=== PATIENT | male | born 1965 | race Caucasian/White ===

== ENCOUNTER 2016-12-08 13:07 | Emergency (ER) | payer MEDICAID, OTHER ==
[~2016-12-08] VITALS: Ht 180.3 cm; Wt 79.0 kg
[~2016-12-08 13:07] MED LIST: CYCL-36 PO; DIAZ10 PO; LEVA500T33 PO; LORT7.5T3 PO; MELOPOW XX; METR250 PO; OXYC-360 PO
[2016-12-08 13:14] VITALS: BP 116/77; PULSE 59; RESP 18; TEMP 97.7; O2SAT 98
[2016-12-08] MEDS ORDERED: HYDR-3535 PO (13:22)
[2016-12-08] MEDS ORDERED: DIAZ2TAB PO (13:22)
[2016-12-08] MEDS ORDERED: diphenhydrAMINE HCL 25 MG CAP PO ONE (14:00)
[2016-12-08] MEDS ORDERED: FAMOTIDINE 20 MG TAB PO ONE (14:00)
[2016-12-08] MEDS ORDERED: predniSONE 20 MG TAB PO ONE (14:00)
--- NOTE | 2016-12-08 14:05 | PD ---
HPI Chief Complaint: Skin Problem Time Seen by Provider: 14:01 Travel History International Travel<30 days: No Contact w/Intl Traveler<30days: No Traveled to known affect area: No History of Present Illness HPI Patient comes in complaining of a pruritic rash on his bilateral upper extremities and back that he awoke with around 3:30 this morning. Patient denies any known new allergen exposures including to but not limited to: Soaps, lotions, detergents, pets, medications, furniture, or known environmental allergies. Patient reports yesterday he was working on a car which is not uncommon for him and did not use anything different. Denies being on any one else with similar or weight loss. Denies any fevers or respiratory involvement. PFSH Past Medical History Arthritis: Yes ("arthritis in the back") Anxiety: Yes Diminished Hearing: No Gout: Yes Kidney Stones: Yes Past Surgical History Genitourinary Surgery: Yes (DIALATION OF URETERS) Other Surgery: Yes (? lithotripsy "break up adhesions from kidney stones") Social History Alcohol Use: Yes (DAILY) Tobacco Use: No (DENIES) Substance Use: No Allergies-Medications (Allergen,Severity, Reaction): Coded Allergies: No Known Allergies (Verified , 12/08/16) Reported Meds & Prescriptions Reported Meds & Active Scripts Active Pepcid (Famotidine) 20 Mg Tab 20 Mg PO BID 10 Days Prednisone (21) 10 mg tab Dose Pack (Prednisone) 10 Mg Pack 10 Mg PO DIRECTED Reported Lortab (Hydrocodone-Acetaminophen) 10-325 Mg Tab 1 Tab PO Q4H PRN Diazepam 2 Mg Tab Unknown Dose PO TID PRN Review of Systems Except as stated in HPI: all other systems reviewed are Neg Physical Exam Narrative GENERAL: Well-developed, well nourished, in no acute distress, and non-ill appearing. SKIN: Warm and dry. Blanching smooth rash noted bilateral upper extremities. It is afebrile, not indurated, without crepitus fluctuation. There is no drainage or excoriation noted. HEAD: Atraumatic. Normocephalic. EYES: Pupils equal and round. EOMI. No scleral icterus. No injection or drainage. ENT: No nasal bleeding or discharge. Mucous membranes pink and moist. NECK: Trachea midline. Supple. No nuclear rigidity. RESPIRATORY: No accessory muscle use. No respiratory distress. Speaking in full sentences without difficulty. MUSCULOSKELETAL: No obvious deformities. No clubbing. No cyanosis. No edema. Full range of motion. NEUROLOGICAL: Awake and alert. No obvious cranial nerve deficits. Motor grossly within normal limits. Normal speech. PSYCHIATRIC: Appropriate mood and affect; insight and judgment normal. Data Data Last Documented VS Vital Signs Date Time Temp Pulse Resp B/P Pulse Ox O2 Delivery O2 Flow Rate FiO2 12/08/16 13:14 97.7 59 18 116/77 98 Orders Prednisone (Deltasone) (12/08/16 14:00) Famotidine (Pepcid) (12/08/16 14:00) Diphenhydramine (Benadryl) (12/08/16 14:00) MDM Medical Decision Making Medical Screen Exam Complete: Yes Emergency Medical Condition: Yes Differential Diagnosis Allergic reaction, viral rash, nonspecific rash, folliculitis, other Narrative Course The patient presented with nonspecific rash/dermatitis. There were no blisters or bullae, target lesions, purpura or petechia, nor vesiculobullous or scarlatiniform lesions. The patient looks great and was non-ill appearing. There was no evidence to suggest scabies, cellulitis, folliculitis or abscess, Staph. Scalded Skin Syndrome, Toxic Shock, Toxic Epidermal necrolysis, Kawasaki s, Measles, Rubella, cutaneous T cell lymphoma, Erythema Multiforme (minor or major). Plan of care was discussed with the patient and the patient is to follow up with their physician. The patient agreed with plan. Patient in no obvious distress upon re-evaluation. Patient was asked if they wanted to speak to my attending, which the patient did not wish to do at this time. Any questions/concerns in reference to patient diagnosis/condition discussed and clarified prior to patient's discharge. Reinforced sheer importance of close follow up with patient's primary physician or primary care clinic. Instructed patient to return to ED immediately, if symptoms return/ worsen. Pt showed understanding of above instructions. Further instructions and recommendations were detailed in discharge paperwork. Pt ambulated without difficulty out of ED at discharge. Diagnosis Primary Impression: Rash Patient Instructions: Acute Rash (ED), General Instructions Additional Instructions: Follow-up with your primary care physician tomorrow as scheduled for possible allergy testing and/or dermatology referral. Take all medication as prescribed. Use [id number] Claritin or Zyrtec or Benadryl as needed for symptomatic relief. Follow instructions on the packaging. Return to the emergency department if symptoms get worse. Med/Other Pt SpecificInfo: Prescription(s) given Scripts Famotidine (Pepcid)20 Mg Tab20 Mg PO BID 10 Days Ref 0 Prov:Henrry Byrnes MD 12/08/16 Prednisone (21) 10 mg tab Dose Pack 10 Mg Pack10 Mg PO DIRECTED #1 DSPK Ref 0 Prov:Henrry Byrnes MD 12/08/16 Disposition: 01 DISCHARGE HOME Condition: Stable Jonathan Flood Dec 08, 2016 14:05
[2016-12-08] MEDS ORDERED: FAMO1TAB37 PO (14:07)
[2016-12-08] MEDS ORDERED: PRED10PA PO (14:07)
== END 2016-12-08 14:15 | disposition home or self-care (01) ==
LOC: PHEFT 13:07
DX: R21 Rash and other nonspecific skin eruption (principal)
CPT/HCPCS: 99282; J7512

== ENCOUNTER 2017-05-15 20:57 | Emergency (ER) | payer MEDICAID ==
[~2017-05-15] VITALS: Ht 180.3 cm; Wt 80.2 kg
[~2017-05-15 20:57] MED LIST changes: -CYCL-36 PO; -DIAZ10 PO; +DIAZ2TAB PO; +FAMO1TAB37 PO; +HYDR-3535 PO; -LEVA500T33 PO; -LORT7.5T3 PO; -MELOPOW XX; -METR250 PO; -OXYC-360 PO; +PRED10PA PO
[2017-05-15 21:04] VITALS: BP 126/67; PULSE 65; RESP 16; TEMP 97.9; O2SAT 94
[2017-05-15] MEDS ORDERED: CIPROFLOXACIN 500 MG TAB PO ONE (22:00)
[2017-05-15] MEDS ORDERED: TETANUS/DIPHTHERIA TOXOID ADULT 0.5 ML VIAL IM ONE (22:00)
[2017-05-15] MEDS ORDERED: LIDOCAINE HCL 1% PF 30 ML VIAL INFIL ONE (22:00)
[2017-05-15] MEDS ORDERED: DOXYCYCLINE HYCLATE 100 MG CAP PO ONE (22:00)
[2017-05-15] MEDS ORDERED: CEPHALEXIN MONOHYDRATE 500 MG CAP PO ONE (22:00)
[2017-05-15] MEDS ORDERED: DOXY100C PO (22:20)
[2017-05-15] MEDS ORDERED: CEPH-460 PO (22:20)
[2017-05-15] MEDS ORDERED: CIPR-9 PO (22:20)
--- NOTE | 2017-05-15 22:29 | PD ---
HPI Chief Complaint: Foreign Body Time Seen by Provider: 22:00 Travel History International Travel<30 days: No Contact w/Intl Traveler<30days: No Traveled to known affect area: No History of Present Illness HPI 52-year-old male presents to the emergency room for evaluation of a foreign body to the left hand that occurred about 2 hours prior to arrival. Patient was out fishing on his boat when he was stabbed with a catfish spine in his left hand. States it took about an hour to come to the shore. He applied ice and then came to the emergency room. Patient reports severe pain around the insertion but denies any paresthesias or loss of range of motion. No radiation of symptoms. Unknown last tetanus. PFSH Past Medical History Arthritis: Yes ("arthritis in the back") Anxiety: Yes Diminished Hearing: No Gout: Yes Kidney Stones: Yes Tetanus Vaccination: > 5 Years Influenza Vaccination: No Past Surgical History Genitourinary Surgery: Yes (DIALATION OF URETERS) Other Surgery: Yes (? lithotripsy "break up adhesions from kidney stones") Social History Alcohol Use: No (OCC) Tobacco Use: No (QUIT 3 YEARS AGO) Substance Use: No Allergies-Medications (Allergen,Severity, Reaction): Coded Allergies: No Known Allergies (Verified , 12/08/16) Reported Meds & Prescriptions Reported Meds & Active Scripts Active Pepcid (Famotidine) 20 Mg Tab 20 Mg PO BID 10 Days Prednisone (21) 10 mg tab Dose Pack (Prednisone) 10 Mg Pack 10 Mg PO DIRECTED Reported Lortab (Hydrocodone-Acetaminophen) 10-325 Mg Tab 1 Tab PO Q4H PRN Diazepam 2 Mg Tab Unknown Dose PO TID PRN Review of Systems Except as stated in HPI: all other systems reviewed are Neg Physical Exam Narrative GENERAL: Well-nourished, well-developed male in no acute distress. Afebrile. Ambulatory. SKIN: Focused skin assessment warm/dry. There is a 0.5 cm laceration with a large cat fish spine extending out about 2.5 cm. Nonbleeding. No surrounding erythema. HEAD: Normocephalic. EYES: No scleral icterus. No injection or drainage. NECK: Supple, trachea midline. No JVD or lymphadenopathy. CARDIOVASCULAR: Regular rate and rhythm without murmurs, gallops, or rubs. RESPIRATORY: Breath sounds equal bilaterally. No accessory muscle use. MUSCULOSKELETAL: No cyanosis. Mild edema around the catfish spine. Full range of motion of the left hand. Less than 2 second capillary refill distally. Data Data Last Documented VS Vital Signs Date Time Temp Pulse Resp B/P Pulse Ox O2 Delivery O2 Flow Rate FiO2 05/15/17 21:04 97.9 65 16 126/67 94 Orders Lidocaine Pf 1% Inj (Xylocaine-Mpf 1% In (05/15/17 22:00) Tetanus/Diphtheria Tox Adult (Tetanus/Di (05/15/17 22:00) Ciprofloxacin (Cipro) (05/15/17 22:00) Cephalexin (Keflex) (05/15/17 22:00) Doxycycline (Vibramycin) (05/15/17 22:00) MDM Medical Decision Making Medical Screen Exam Complete: Yes Emergency Medical Condition: Yes Medical Record Reviewed: Yes Differential Diagnosis Catfish injury, contusion, abrasion, laceration Narrative Course 52-year-old male presents to the emergency room for evaluation of a catfish spine foreign body to his left hand that occurred a few hours prior to arrival. There is moderate localized edema but no erythema, lymphangitis. Full range of motion of the left hand. Less than 2 second capillary refill distally. Tetanus was updated and patient was given his first dose of antibiotics in the emergency room. He was numbed and catfish spine was removed without difficulty. It was observed that the entire spine is intact. Patient discharged with wound care instructions and told to follow-up with primary care physician or return for worsening symptoms. He understands and agrees to plan. Procedures Procedure Narrative Foreign body removal: The area was prepped and was sterilely draped. A subcutaneous wheal of 1% lidocaine with a total number 5 mL was used to anesthetize the area properly. A number 11 scalpel was used to extend the incision around the foreign body. Gentle traction was applied and the foreign body was removed without difficulty. The abscess was thoroughly irrigated with Betadine and normal saline. Sterile dressing applied. Diagnosis Primary Impression: Foreign body (FB) in soft tissue Referrals: Primary Care Physician Patient Instructions: General Instructions, Soft Tissue Foreign Body in Children (ED) Additional Instructions: Rest and drink plenty of fluids. Take Cipro, Keflex, and doxycycline as directed, until gone. Doxycycline will make you burn in the sun. Cipro can cause tendon rupture so try to avoid any heavy lifting while taking the medication. Follow up with a primary care physician. Return to emergency room for worsening symptoms, as discussed. Med/Other Pt SpecificInfo: Prescription(s) given Scripts Cephalexin (Keflex)500 Mg [id number] Mg PO Q12H 7 Days Ref 0 Prov:Gerson Bonilla MD 05/15/17 Doxycycline Hyclate 100 Mg [id number] Mg PO BID 7 Days Ref 0 Prov:Gerson Bonilla MD 05/15/17 Ciprofloxacin (Cipro)500 Mg [id number] Mg PO BID 7 Days Ref 0 Prov:Gerson Bonilla MD 05/15/17 Disposition: 01 DISCHARGE HOME Condition: Stable Marley Diaz May 15, 2017 22:29
== END 2017-05-15 22:40 | disposition home or self-care (01) ==
LOC: PHEFT 20:57
DX: S61.442A Puncture wound with foreign body of left hand, initial encounter (principal); W56.59XA Other contact with other fish, initial encounter; Y93.89 Activity, other specified; Y92.814 Boat as the place of occurrence of the external cause; Z23 Encounter for immunization
CPT/HCPCS: 10120; 90471; 90714